=== PATIENT | female | born 1970 | race Caucasian/White ===

== ENCOUNTER → 2020-08-26 13:09 | Outpatient (CLI) | payer OTHER, SELFPAY ==
--- NOTE | 2020-08-26 13:25 | CT_ITS ---
STUDY: CT ABDOMEN AND PELVIS WITH AND WITHOUT CONTRAST REASON FOR EXAM: Female, 50 years old. KS,HEMATUTIA,UTI, HX BREAST CA RADIATION DOSAGE (If Supplied By Facility): CTDIvol = ( 12.94 ) mGy, DLP = ( 1778.57 ) mGycm TECHNIQUE: Transaxial images were obtained from the dome of the diaphragm to the symphysis pubis without oral contrast. IV 100ML ISOVUE 300 was administered. Sagittal and coronal images were reconstructed. Individualized dose optimization techniques were used for this CT. COMPARISON: None. FINDINGS: The visualized lung bases are unremarkable. The visualized portions of the heart are within normal limits. Normal liver. There are surgical clips in the gallbladder fossa consistent with a prior cholecystectomy. Normal spleen. Normal pancreas. Normal bilateral adrenal glands. Bilateral kidney stones are noted, the largest measures 5 mm. There is no hydronephrosis. Normal visualized stomach. Normal small intestine. Normal colon. There are surgical clips in the region of the appendix consistent with a prior appendectomy. Normal abdominal aorta. Normal inferior vena cava. Normal retroperitoneum. Normal urinary bladder. Normal abdominal wall. Normal osseous structures. CT/CT Abd/Pelvis W/WO Contrast IMPRESSION: Bilateral kidney stones are noted, the largest measures 5 mm. There is no hydronephrosis. Electronically Signed: Sam Bolden MD at 14:20 EST Tel , Service support ,
== END ==
PROVIDERS: PCP Family Medicine; Referring Provider Urology; Visit Provider Urology
DX: N20.0 Calculus of kidney (principal); N39.0 Urinary tract infection, site not specified; R31.9 Hematuria, unspecified
CPT/HCPCS: 74178; Q9967

== ENCOUNTER → 2020-12-22 11:59 | Outpatient (CLI) | payer OTHER, SELFPAY ==
--- NOTE | 2020-12-22 12:02 | RAD_ITS ---
EXAM: XR ABDOMEN, 1 VIEW : 1970 CLINICAL INDICATION: STONES TECHNIQUE: Frontal supine view of the abdomen/pelvis. This report was created using [employer] report generation technology. COMPARISON: None. FINDINGS: LOWER THORAX: No acute pathology. GASTROINTESTINAL TRACT: There is moderate stool in the colon. Non-obstructive. No bowel or stomach distention. ORGANS: There are surgical clips from a cholecystectomy. No organomegaly. No abnormal calcifications. BONES/JOINTS: There are orthopedic screws across a right sacroiliac joint. SOFT TISSUES: No acute pathology. RAD/Abdomen Single View IMPRESSION: Moderate stool in the proximal to mid colon which may represent early constipation. No other abnormalities identified. at 0904 Reported and signed by: Jhony Abbasi MD Electronically Signed: Jhony Abbasi MD at 9:03 EDT Tel , Service support ,
== END ==
PROVIDERS: PCP Family Medicine; Referring Provider Urology; Visit Provider Urology
DX: N20.0 Calculus of kidney (principal)
CPT/HCPCS: 74018

== ENCOUNTER 2021-01-11 06:01 | Day surgery (SDC) | payer OTHER, SELFPAY ==
[2021-01-11] VITALS (10 sets, daily range): BP systolic 94–147; BP diastolic 56–103; PULSE 56–72; RESP 16–70; TEMP 36–36.9; O2SAT 91–95; BMI 30.7
[2021-01-11] MEDS: Lactated Ringers 1,000 ML 100 ML IV (06:58)
--- NOTE | 2021-01-11 07:24 | PCM.HP.STD ---
HPI - General HPI Narrative PATIENCE GARAY, is a 50 F who presents for definitive management of the left renal stones found on evaluation for urinary tract infection and hematuria. Informed consent was obtained. [facility], [facility] Medical History (Updated 01/11/21 @ 07:[address] Holly Coreas MD) Anxiety Cancer Cardiology follow-up encounter CPAP (continuous positive airway pressure) dependence Dietary restriction Former smoker Gastric reflux History of CHF (congestive heart failure) History of chronic pain History of edema History of fibromyalgia History of hiatal hernia History of IBS History of renal disease History of sacroiliac joint dysfunction History of stress test Hx of echocardiogram Hypertension Left renal stone Restless legs Urinary tract infection Wears glasses Home Medications ascorbic acid (vitamin C) [Vitamin C] 500 mg PO DAILY 01/04/21 [History Last Taken Unknown] cholecalciferol (vitamin D3) [Vitamin D3] 50 mcg PO DAILY 01/04/21 [History Last Taken Unknown] d-mannose 3,000 mg PO DAILY 01/04/21 [History Last Taken Unknown] digoxin 125 mcg PO DAILY 01/04/21 [History Last Taken 01/11/21 05:20] duloxetine [Cymbalta] 60 mg PO QHS 01/04/21 [History Last Taken Unknown] famotidine [Pepcid] 40 mg PO BID 01/04/21 [History Last Taken 01/11/21 05:20] furosemide [Lasix] 20 mg PO .QWEEK PRN 01/04/21 [History Last Taken Unknown] gabapentin 600 mg PO QHS 01/04/21 [History Last Taken Unknown] ivabradine [Corlanor] 2.5 mg PO BID 01/04/21 [History Last Taken 01/11/21 05:20] lactobacillus combination no.4 [Probiotic] 3,000 mmu cells PO DAILY 01/04/21 [History Last Taken Unknown] metoprolol succinate 12.5 mg PO QHS 01/04/21 [History Last Taken Unknown] multivitamin 1 cap PO DAILY 01/04/21 [History Last Taken Unknown] peppermint oil [IBgard] 90 mg PO BID 01/04/21 [History Last Taken Unknown] promethazine [Phenergan] 25 mg PO QHS 01/04/21 [History Last Taken Unknown] sacubitril-valsartan [Entresto] 1 tab PO BID 01/04/21 [History Last Taken 01/11/21 05:20] spironolactone [Aldactone] 25 mg PO DAILY 01/04/21 [History Last Taken Unknown] Allergy/AdvReac Type Severity Reaction Status Date / Time ondansetron [From Zofran] AdvReac severe Verified 01/04/21 12:12 headaches Surgical History History of History of cardiac catheterization History of esophagogastroduodenoscopy (EGD) Hx laparoscopic cholecystectomy Hx of abdominal hysterectomy Hx of bilateral mastectomy Hx of breast reconstruction Hx of colonoscopy Hx of partial nephrectomy Hx of splenectomy Hx of tonsillectomy Social History Smoking Status: Former smoker ROS Constitutional Constitutional: Reports systems reviewed and no addt'l complaints, except as documented Eyes Eyes: Reports systems reviewed and no addt'l complaints, except as documented ENT HEENT: Reports systems reviewed and no addt'l complaints, except as documented Cardiovascular Cardiovascular: Reports systems reviewed and no addt'l complaints, except as documented Respiratory/Chest Respiratory/Chest: Reports systems reviewed and no addt'l complaints, except as documented Gastrointestinal Gastrointestinal: Reports systems reviewed and no addt'l complaints, except as documented Genitourinary Genitourinary: Reports hematuria and urinary urgency; Denies burning urination or flank pain Musculoskeletal Musculoskeletal: Reports systems reviewed and no addt'l complaints, except as documented Integumentary Integumentary: Reports systems reviewed and no addt'l complaints, except as documented Neurologic Neurologic: Reports systems reviewed and no addt'l complaints, except as documented Psychiatric Psychiatric: Reports systems reviewed and no addt'l complaints, except as documented Vital Signs Vital Signs Vital Signs: 01/11/21 06:32 Temperature 97.2 F L Temperature Source Temporal Pulse Rate 72 Respiratory Rate 70 H Respiratory Pattern Normal Blood Pressure 94/62 Blood Pressure Mean 72 Blood Pressure Source Monitor Blood Pressure Position Semi-Fowlers Blood Pressure Location Left Arm Pulse Ox 95 Oxygen Delivery Method Room Air Weight Weight: 76.204 kg Body Mass Index (BMI) 30.7 Physical Exam Const alert, oriented x3 and no apparent distress HEENT normocephalic, head/scalp atraumatic, hearing grossly normal bilaterally, external nose normal, moist oral mucous membranes, dentition normal and gingiva normal Neck supple General: normal visual inspection and trachea midline Lymph Lymphatic: no lymphedema noted Chest inspection of chest normal Chest: symmetrical chest wall rise Resp normal respiratory effort, normal air movement, no retractions and no use of accessory muscles Cardio regular rate and regular rhythm GI soft to palpation, non-tender and non-distended no CVA tenderness and external exam normal Back/Spine no CVA tenderness Extremity normal to inspection Skin no rashes or lesions noted, no wounds, skin turgor normal, no jaundice, no petechiae and no mottling Neuro oriented x3, CN's II-XII intact bilaterally, moves all extremities and no focal motor deficits Psych mental status grossly normal, thought process normal, cooperative and affect normal Assessment & Plan Assessment/Plan (1) Left renal stone: PLAN: Proceed with left extracorporal shockwave lithotripsy (2) Urinary tract infection: Procedure Criteria Type of Procedure Procedure Type: Elective Elective Risks - COVID COVID Risk Discussion: The surgeon/proceduralist and patient have discussed in detail the risk of exposure to and/or potential harm posed by the COVID-19 virus with having a surgery/procedure at this time versus the risk of delaying the surgery/procedure. It is not possible to know either the risk of delaying the surgery or procedure or chance of getting an infection with perfect accuracy, but a joint decision was made between the patient and the surgeon/proceduralist to proceed at this time with the scheduled surgery/procedure as indicated on the consent form.
[2021-01-11] MEDS: Cefazolin 2 GM in 0.9% Normal Saline 100 ML IV (07:39)
--- NOTE | 2021-01-11 07:43 | PCM.OPRPT ---
Problems Associated Problem List Diagnoses (1) Urinary tract infection: (2) Left renal stone: Report of Operation Date of Procedure: 01/11/21 Pre-Operative Diagnosis: Left renal stone, urinary tract infections Post-Operative Diagnosis: Same Surgery/Procedure Performed:: Left renal extracorporal shockwave lithotripsy Surgeon: Holly Coreas Type of Anesthesia: General Description of Procedure: The patient is a 50-year-old female with a history of recurrent urinary tract infections and hematuria. She was evaluated with a CT scan that identified 2 left renal stones. These are nonobstructing and approximately 5 mm. After discussing the risk benefits and alternatives she decided to proceed with definitive shockwave lithotripsy. The patient was taken to the operating room and placed on the operating room table. Anesthesia monitored the head, neck, airway, IV access and vital signs are the case. Once anesthesia was appropriate ministered, the patient was placed into correct positioning with a lithotripter. She was appropriately padded and secured to the table. The left midpole renal stone was identified. 3000 shocks were in total. The stone appeared to be well fragmented. Patient was then awakened and taken to the recovery room in good condition. There were no complications during this procedure. Grafts/Implants Used: none Complications none Admit VTE Documentation VTE Present on Admission: Yes VTE Mechan Device Prophylaxis: SCD's VTE Pharm Prophylaxis ordered?: No Reason prophylaxis not ordered:: Treatment Not Indicated
--- NOTE | 2021-01-11 07:46 | PCM.DC ---
Discharge Instructions Diet Discharge Diet: No restrictions Activity Discharge Activity: Return to Normal Activity and - (no driving while on narcotics) Dressing / Incision Call your doctor if you observe: Fever of 101 or Higher, Inability to urinate, Inability to have a bowel movement, Chest pain, Calf discomfort and Uncontrolled pain Follow Up Care Please Follow Up With: Holly Coreas MD When: in 2-3 weeks, call office for appt Test Results: Test results from this visit will be discussed in further detail at your follow-up appointment, if applicable. Discharge Plan Admission Attending Provider: Holly Coreas Primary Care Provider: Prashant Menezes Discharge Orders/Prescriptions Prescriptions: New oxycodone-acetaminophen [oxycodone-acetaminophen] 1 TABLET tablet 2 tab PO Q8H PRN PRN (Reason: Pain) 7 Days Qty: 20 RF: 0 cephalexin [cephalexin] 500 MG capsule 500 mg PO Q12 3 Days Qty: 6 RF: 0 phenazopyridine [Pyridium] 200 MG tablet 200 mg PO TID PRN PRN (Reason: Bladder Spasms) 7 Days Qty: 30 RF: 0 Continued gabapentin 600 mg Tablet 600 mg PO QHS RF: 0 famotidine [Pepcid] 40 mg Tablet 40 mg PO BID RF: 0 spironolactone [Aldactone] 25 mg Tablet 25 mg PO DAILY RF: 0 ascorbic acid (vitamin C) [Vitamin C] 500 mg Tablet 500 mg PO DAILY RF: 0 promethazine 25 mg Tablet 25 mg PO QHS RF: 0 digoxin 125 mcg (0.125 mg) Tablet 125 mcg PO DAILY RF: 0 furosemide [Lasix] 20 mg Tablet 20 mg PO .QWEEK PRN (Reason: Edema) RF: 0 multivitamin Capsule 1 cap PO DAILY RF: 0 duloxetine [Cymbalta] 60 mg Capsule,Delayed Release(Dr/Ec) 60 mg PO QHS RF: 0 cholecalciferol (vitamin D3) [Vitamin D3] 50 mcg (2,000 unit) Capsule 50 mcg PO DAILY RF: 0 Corlanor 5 mg Tablet 2.5 mg PO BID RF: 0 Probiotic 3 billion cell Capsule 3,000 mmu cells PO DAILY RF: 0 IBgard 90 mg Capsule,Delayed,Extend.Release 90 mg PO BID RF: 0 Entresto 24-26 mg Tablet 1 tab PO BID RF: 0 metoprolol succinate 25 mg Capsule,Sprinkle,Er 24hr 12.5 mg PO QHS RF: 0 d-mannose 500 mg Capsule 3,000 mg PO DAILY RF: 0 Referrals / Follow Up: Prashant Menezes MD [Primary Care Provider] - Disposition Disposition (needs filled in before D/C Order can be placed): Home, Self Care
[2021-01-11] MEDS: oxyCODONE 5 MG Tablet PO (11:24)
== END 2021-01-11 12:07 | disposition home or self-care (01) ==
LOC: SDC 06:03 → AC 06:04
PROVIDERS: PCP Family Medicine; Referring Provider Urology; Visit Provider Urology
PROC: (CPT 50590; principal; 2021-01-11 07:20)
DX: N20.0 Calculus of kidney (principal); N39.0 Urinary tract infection, site not specified; F41.9 Anxiety disorder, unspecified; I11.0 Hypertensive heart disease with heart failure; I50.9 Heart failure, unspecified; M79.7 Fibromyalgia; K21.9 Gastro-esophageal reflux disease without esophagitis; G47.30 Sleep apnea, unspecified; Z87.891 Personal history of nicotine dependence; Z79.899 Other long term (current) drug therapy
CPT/HCPCS: 50590; J7120

== ENCOUNTER → 2021-01-26 10:20 | Outpatient (CLI) | payer OTHER, SELFPAY ==
[2021-01-11 06:32] VITALS: BMI 30.7
--- NOTE | 2021-01-26 10:22 | RAD_ITS ---
STUDY: X-RAY - ABDOMEN/PELVIS REASON FOR EXAM: Female, 50 years old. KIDNEY CALC TECHNIQUE: Single AP view of the abdomen / pelvis. COMPARISON: 12/22/2020. FINDINGS: Lung base is not included in the [id number]. There is an unremarkable bowel gas pattern. There is no demonstrated free abdominal air. Right upper quadrant surgical clips otherwise the visualized liver, spleen and kidneys are grossly normal in size and morphology. Normal soft tissue structures. Fixation screws through the right sacrum and ilium. Degenerative disease at the visualized left SI joint. Mild degenerative disease of the pubic symphysis and bilateral hips. Tiny calcification projecting in the region of the left kidney, measuring 2.5 mm stable in the interval. RAD/Abdomen Single View IMPRESSION: Nonspecific gas pattern with no signs of bowel obstruction. No free air. Unchanged calcification in the region of the left kidney as described. Electronically Signed: Domonique Farah MD at 1:53 EDT , Service support ,
== END ==
PROVIDERS: PCP Family Medicine; Referring Provider Urology; Visit Provider Urology
DX: N20.0 Calculus of kidney (principal)
CPT/HCPCS: 74018

== ENCOUNTER 2021-07-29 10:05 | Outpatient (CLI) | payer OTHER, SELFPAY ==
[2021-01-11 06:32] VITALS: BMI 30.7
--- NOTE | 2021-07-29 10:08 | RAD_ITS ---
STUDY: X-RAY - ABDOMEN/PELVIS REASON FOR EXAM: Female, 51 years old. KUB- KIDNEY STONE TECHNIQUE: Single AP view of the abdomen / pelvis. COMPARISON: None. FINDINGS: Comparison is made with prior study dated 01/26/2021. There is an abundance of fecal material throughout the colon. Surgical clips are seen in the right upper quadrant in keeping with prior cholecystectomy. The previously seen tiny calcifications in the left mid kidney are unchanged. Normal soft tissue structures. 3 metallic screws are seen overlying the right sacroiliac joint. RAD/Abdomen Single View IMPRESSION: Stable examination. Electronically Signed: Mc Del Cid MD at 12:45 EST , Service support ,
== END 2021-07-29 23:59 | disposition short-term general hospital (02) ==
LOC: MTRAD 10:07
PROVIDERS: PCP Family Medicine; Referring Provider Urology; Visit Provider Urology
DX: N20.0 Calculus of kidney (principal)
CPT/HCPCS: 74018